=== PATIENT | female | born 1985 | race Caucasian/White ===

== ENCOUNTER 2019-10-17 09:27 | Outpatient (CLI) | payer OTHER, SELFPAY ==
--- NOTE | 2019-10-17 09:46 | CT_ITS ---
WS: [id number] CT scan of the abdomen and pelvis without Oral and IV contrast. Additional two-dimensional coronal a nd sagittal reconstruction was performed. 10/17/2019 Clinical Data: RIGHT FLANK PAIN Comparison: None. DLP: 1075.[address] scans at [facility] use at least one of these dose optimization techniques: automat ed exposure control; mA and/or kV adjustment per patient size (includes targeted exams where dose is matched to clinical indication); or iterative reconstruction. Findings: The lower lungs show no nodules, masses or effusions. The liver, gallbladder, spleen, adrenal glands and pancreas are normal. The kidneys show no renal calculi, hydronephrosis, cysts, masses or perinephric abnormalities. No int raureteral calculi are seen. The abdominal aorta is normal in size. No appendicitis or diverticulitis is seen. There is a 0.9 cm calcification lying on the right psoas m uscle which is probably a lymph node. No abscess, adenopathy, ascites, mass, obstruction or free air is seen The bladder is unremarkable. No bladder calculi are noted. There are phleboliths in the true pelvis. No inguinal hernia is seen. The bones of the lower thorax, lumbar spine, pelvis, and hips are normal. CT/CT kidney stone [id number] Impression: 1. Negative for renal or ureteral calculi. 2. Negative for acute intra-abdominal or pelvic abnormalities.
== END 2019-10-17 09:28 | disposition home or self-care (01) ==
LOC: RADWPI 09:37
PROVIDERS: Family Provider Family Medicine; PCP Family Medicine; Visit Provider Nurse Practitioner Family
DX: R10.9 Unspecified abdominal pain (principal)
CPT/HCPCS: 74176

== ENCOUNTER → 2021-01-01 10:09 | Outpatient (BNVA) | payer OTHER, SELFPAY | PROVIDERS: Family Provider Family Medicine; PCP Family Medicine; Visit Provider Nurse Practitioner Family | DX: J30.2 Other seasonal allergic rhinitis (principal) | CPT/HCPCS: 87071; 87880 ==